=== PATIENT | male | born 1950 | race Caucasian/White ===

== ENCOUNTER → 2016-12-15 | Day surgery (SDC) | payer OTHER ==
[~2016-12-15] VITALS: Ht 177.8 cm; Wt 55.3 kg
[~2016-12-15] MED LIST: CYCLOBENZAPRINE10 M1 PO; FLONASE ALLERG9.9 ML; MUCINEX600 M1 PO; NEURONTIN300 M1 PO; PLAVIX75 M1 PO; PROAIR HFA8.5 GM INH; SYMBICORT 16010.2 GM INH
--- NOTE | 2016-12-15 15:23 | Operative Report ---
Operative/Inv Procedure Report Surgery Date: 12/15/16 Name of Procedure: Excision 3.5 cm skin malignancy right temporal Excision skin malignancy right chest 5 cm with complex closure 5 cm Pre-Operative Diagnosis: Skin malignancy Post-Operative Diagnosis: Same pathology pending Estimated Blood Loss: scant Surgeon/Marketing Representative: SERGIO HOLGUIN MD Anesthesia: moderate sedation Operative/Procedure Note Note: Patient was counseled extensively regarding the procedure the alternatives risks and expected outcomes as relates to patient's request for surgical intervention to treat a basal cell carcinoma right [place] is enlarging due to his absence from the [facility] due to employment. Patient also has an ulcerated area in the previous scar done to excise basal cell of the chest. We discussed full thickness grafting of the right temporal area risk of recurrence infection bleeding pain definitely visible scarring possibly unsightly or symptomatic numbness of the surrounding area and forehead. These risks were accepted was marked and informed consent was signed. Taken to the operative placed supine on the table with administration of IV sedation and antibiotics the face chest and right groin were prepped and draped in usual sterile fashion. Foot this excision for the dimensions described above was carried around the temporal lesion and marked for orientation. Rested from the right groin defatted placed in the defect for the dimensions described above and sutured in position including a tie-over bolster dressing. Full-thickness excision of the entire length of the scar of the right chest was performed. Complex closure was then performed by undermining extensively in all directions and a 2 layer closure for the dimensions described above. I to the sites. Ends dictation
== END ==
LOC: STS 01:47
DX: C44.519 Basal cell carcinoma of skin of other part of trunk (principal); C44.319 Basal cell carcinoma of skin of other parts of face; J44.9 Chronic obstructive pulmonary disease, unspecified; F17.210 Nicotine dependence, cigarettes, uncomplicated; Z86.19 Personal history of other infectious and parasitic diseases
CPT/HCPCS: 88305; J0690; J2250